=== PATIENT | female | born 1980 ===

== ENCOUNTER 2024-03-24 08:18 | Outpatient (AMB) | payer OTHER, SELFPAY ==
--- NOTE | 2024-03-24 08:21 | A.OFFVIS_ITS ---
Vital Signs 03/24/24 08:29 Height 5 ft 7 in Weight 169 lb BMI 26.5 BP 136/94 H Blood Pressure Location Lt brachial Position Sitting Pulse 89 Intake Visit Reasons: colonoscopy screening Intake Note: Patient new consult for 1st pre colonoscopy screening. Patient denies any GI issues. 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 Accompanied by: Self / Same As Patient Allergies No Known Allergies Allergy (Verified 03/24/24 08:20) HPI Comments Details: A very pleasant, 43 y/o female family history colon cancer - father at 60 - Father as well had hemochromatosis-she says she was denied by insurance for testing-she will follow back with PCP for repeat screening lab-per PCP note Younger sister-has already had colonoscopy that was normal Bowels are normal Appetite is good She has no respiratory or cardiac No N/V/D, abdominal pain fever or chills PFSH Family History (Updated 03/24/24 @ 08:59 by Mendy Montano PA-C) Father Colon cancer Hemochromatosis Social History (Updated 03/24/24 @ 09:04 by Mendy Montano PA-C) Comment: social Patient Tobacco Use Status: Never used Tobacco Current occupational status: employed 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 [employer] Details: All systems reviewed and are negative All systems reviewed & are unremarkable except as noted in HPI and below Card Denies chest pain Physical Exam Vital Signs: Last Vital Signs Pulse 89 03/24/24 08:29 BP 136/94 H 03/24/24 08:29 BMI result Body Mass Index 26.5 Const General: cooperative, healthy appearing and comfortable Orientation/consciousness: patient oriented x3 Limitations: no limitations Eyes Sclerae: sclerae normal Resp Effort & Inspection: normal respiratory effort and able to speak in complete sentences Auscultation: clear to auscultation bilaterally, no rales, no rhonchi and no wheezes Cardio Rate: regular rate Rhythm: regular rhythm Heart sounds: S1 normal heart sound present and S2 normal heart sound present GI Palpation (GI): Soft to palpation and nontender Auscultation: normal bowel sounds Skin General skin exam: no rashes or lesions noted Neuro General: patient oriented x3 Extrem General: Yes full ROM Psych Appearance: grossly normal and well kempt Mental Status: mental status grossly normal Speech and movement: Normal speech and movement present Affect: normal affect Attitude: cooperative Thought process: Normal thought process present Thought content: Normal thought content present Insight: Good insight present (Psych) Judgement: Good judgement present (Psych) Assessment & Plan Assessment & Plan (1) Family history of colon cancer requiring screening colonoscopy: Comment: Father at 60 Code(s): Z80.0 - Family history of malignant neoplasm of digestive organs Category: Medical Plan colonoscopy -MG prep- Orders: Orders Colonoscopy - GI Use Only Today Z80.0 - Family history of malignant neoplasm of digestive organs Medications: New bisacodyl (Dulcolax (bisacodyl)) Day before procedure @ 12 noon Take 4 tablets by mouth followed by large glass of water 20 mg (4 x 5 mg) PO ONCE PRN 4 tabs 0RF colonoscopy prep 1 day Z12.11 - Encounter for screening for malignant neoplasm of colon polyethylene glycol 3350 (Miralax) Take as directed by mouth the day before your procedure. 238 grams PO ONCE PRN 238 grams 0RF laxative effect 1 day Patient Instructions: 43-year-old female family history of colon cancer colonoscopy screening Discussed procedure, rare risks need for escorted due to anesthesia MiraLax Gatorade prep, reviewed literature Encouraged to call with questions or concerns Coding Level of Care Code Est Pt Level 3 (39718) Diagnoses Family history of colon cancer requiring screening colonoscopy Z80.0 Time Spent (min) 30
[2024-03-24 08:29] VITALS: BP 136/94; PULSE 89; BMI 26.5
== END 2024-03-24 09:28 | disposition home or self-care (01) ==
PROVIDERS: PCP Physician Assistant Medical; Visit Provider Physician Assistant
DX: Z80.0 Family history of malignant neoplasm of digestive organs (principal)
CPT/HCPCS: 99213

== ENCOUNTER → 2024-03-24 08:18 | Outpatient (BNVA) | payer OTHER, SELFPAY | PROVIDERS: Visit Provider Physician Assistant ==